=== PATIENT | female | born 1965 | race Caucasian/White ===

== ENCOUNTER → 2020-06-17 | Outpatient (CLI) | payer BC ==
[~2020-06-17] MED LIST: CETIRIZINE HCL10 MG PO; CITALOPRAM HBR10 MG PO; FLUTICASON0.05 MG/Ac NS; HCTZ 25MG25 MG PO; POTASSIUM CHLO20 ME4 PO; SEPTRA DS 8001 TAB PO; ZOFRAN ODT4 MG PO
== END ==
LOC: LAB 13:53
DX: R30.9 Painful micturition, unspecified (principal)

== ENCOUNTER → 2020-07-08 | Outpatient (CLI) | payer BC | LOC: AMSURD 14:07 | DX: R07.9 Chest pain, unspecified (principal) ==

== ENCOUNTER 2020-08-31 13:12 | Emergency (ER) | payer BC ==
[2020-08-31] MEDS ORDERED: HCTZ 25MG25 MG PO (13:54)
[2020-08-31] MEDS ORDERED: FLUTICASON0.05 MG/Ac NS (13:54)
[2020-08-31] MEDS ORDERED: CETIRIZINE HCL10 MG PO (13:54)
[2020-08-31] MEDS ORDERED: CITALOPRAM HBR10 MG PO (13:55)
[2020-08-31 14:12] LABS: BASO # 0.05 (0.02-0.10); EOS # 0.04 (0.04-0.40); EOS % 0.9 % (1.0-5.0); HEMATOCRIT 40.4 % (37.0-47.0); HEMOGLOBIN 13.9 g/dL (12.5-16.0); LYMPH# 1.21 (1.50-4.00); MEAN CELL VOLUME 86 fl (78-100); MEAN CORPUSCULAR HEMOGLOBIN 30 pg (27-31); MEAN CORPUSCULAR HGB CONC 34 g/dL (33-37); MEAN PLATELET VOLUME 10.1 fl (7.4-10.4); NEU # 2.97 (1.40-6.50); PLATELET COUNT 173 K/mm3 (130-400); RED BLOOD COUNT 4.68 M/mm3 (4.10-5.30); RED CELL DISTRIBUTION WIDTH 12.5 % (11.5-14.5); WHITE BLOOD COUNT 4.7 K/mm3 (4.8-10.8)
[2020-08-31 14:22] LABS: POTASSIUM 3.5 mmol/L (3.5-5.1)
[2020-08-31 14:23] LABS: CALCIUM 9.4 mg/dL (8.3-10.5)
[2020-08-31 14:35] LABS: PROTHROMBIN TIME 9.9 SECONDS (9.0-12.0)
[2020-08-31 14:36] LABS: D-DIMER 0.43 mg/L FEU (0.15-0.50)
[2020-08-31 15:35] VITALS: BP 123/80
== END 2020-08-31 15:35 | disposition home or self-care (01) ==
LOC: ED 13:12
PROVIDERS: Physician Assistant
DX: S20.01XA Contusion of right breast, initial encounter (principal); F41.9 Anxiety disorder, unspecified; F32.9 Major depressive disorder, single episode, unspecified; Z79.899 Other long term (current) drug therapy; W19.XXXA Unspecified fall, initial encounter; W22.8XXA Striking against or struck by other objects, initial encounter

== ENCOUNTER 2020-10-16 22:11 | Emergency (ER) | payer BC ==
[~2020-10-16] VITALS: Ht 165.1 cm; Wt 74.9 kg
[~2020-10-16 22:11] MED LIST changes: -POTASSIUM CHLO20 ME4 PO; -SEPTRA DS 8001 TAB PO; -ZOFRAN ODT4 MG PO
[2020-10-16 23:18] LABS: BASO # 0.03 (0.02-0.10); HEMATOCRIT 36.7 % (37.0-47.0); HEMOGLOBIN 13.2 g/dL (12.5-16.0); LYMPH# 0.61 (1.50-4.00); MEAN CELL VOLUME 85 fl (78-100); MEAN CORPUSCULAR HEMOGLOBIN 30 pg (27-31); MEAN CORPUSCULAR HGB CONC 36 g/dL (33-37); MEAN PLATELET VOLUME 9.8 fl (7.4-10.4); MONO # 0.59 (0.20-0.80); NEU # 4.31 (1.40-6.50); PLATELET COUNT 115 K/mm3 (130-400); RED BLOOD COUNT 4.34 M/mm3 (4.10-5.30); RED CELL DISTRIBUTION WIDTH 12.9 % (11.5-14.5); WHITE BLOOD COUNT 5.6 K/mm3 (4.8-10.8)
[2020-10-16 23:23] LABS: ALBUMIN 3.6 g/dL (3.5-5.0)
[2020-10-16 23:24] LABS: POTASSIUM 3.3 mmol/L (3.5-5.1)
[2020-10-16 23:25] LABS: CALCIUM 9.1 mg/dL (8.3-10.5)
[2020-10-16 23:26] LABS: TOTAL PROTEIN 6.6 g/dL (6.4-8.3)
[2020-10-16 23:28] LABS: TOTAL BILIRUBIN 0.5 mg/dL (0.2-1.2)
[2020-10-16 23:41] LABS: URINE APPEARANCE HAZY; URINE BILIRUBIN NEGATIVE (NEGATIVE); URINE BLOOD 250 ery/uL (NEGATIVE); URINE COLOR YELLOW; URINE GLUCOSE NEGATIVE (NEGATIVE); URINE KETONE 1+ (NEGATIVE); URINE LEUKOCYTE ESTERASE 1+ (NEGATIVE); URINE NITRATE NEGATIVE (NEGATIVE); URINE PROTEIN(semi-quant) 1+ mg/dL (NEGATIVE); URINE UROBILINOGEN NORMAL (NORMAL)
[2020-10-16 23:42] LABS: URINE MUCUS PRESENT (NOT PRESENT)
[2020-10-17] MEDS ORDERED: ZOFRAN ODT4 MG PO (01:51)
[2020-10-17] MEDS ORDERED: POTASSIUM CHLO20 ME4 PO (01:51)
[2020-10-17] MEDS ORDERED: SEPTRA DS 8001 TAB PO (01:51)
[2020-10-17 02:02] VITALS: BP 115/76
== END 2020-10-17 02:02 | disposition home or self-care (01) ==
LOC: ED 22:11
PROVIDERS: Family Medicine
DX: A08.4 Viral intestinal infection, unspecified (principal); E87.6 Hypokalemia; R82.81 Pyuria; E86.9 Volume depletion, unspecified; F41.9 Anxiety disorder, unspecified; F32.9 Major depressive disorder, single episode, unspecified; Z90.710 Acquired absence of both cervix and uterus; Z90.49 Acquired absence of other specified parts of digestive tract; Z79.899 Other long term (current) drug therapy; Z20.822 Contact with and (suspected) exposure to COVID-19
CPT/HCPCS: J1885; J3490; J7030

== ENCOUNTER → 2021-08-22 | Outpatient (CLI) | payer BC ==
[~2021-08-22] MED LIST changes: +POTASSIUM CHLO20 ME4 PO; +SEPTRA DS 8001 TAB PO; +ZOFRAN ODT4 MG PO
[2021-08-22 14:19] LABS: BASO # 0.05 K/mm3 (0.02-0.10); EOS # 0.09 K/mm3 (0.04-0.40); EOS % 1.7 % (1.0-5.0); HEMOGLOBIN 13.6 g/dL (12.5-16.0); LYMPH# 1.19 K/mm3 (1.50-4.00); MEAN CELL VOLUME 89 fl (78-100); MEAN CORPUSCULAR HEMOGLOBIN 29 pg (27-31); MEAN CORPUSCULAR HGB CONC 33 g/dL (33-37); MEAN PLATELET VOLUME 9.8 fl (7.4-10.4); MONO # 0.35 K/mm3 (0.20-0.80); NEU # 3.63 K/mm3 (1.40-6.50); PLATELET COUNT 179 K/mm3 (130-400); RED BLOOD COUNT 4.63 M/mm3 (4.10-5.30); RED CELL DISTRIBUTION WIDTH 13.5 % (11.5-14.5); WHITE BLOOD COUNT 5.3 K/mm3 (4.8-10.8)
[2021-08-22 14:29] LABS: ALBUMIN 4.4 g/dL (3.5-5.0); POTASSIUM 4.2 mmol/L (3.5-5.1)
[2021-08-22 14:32] LABS: TOTAL PROTEIN 7.3 g/dL (6.4-8.3)
[2021-08-22 14:34] LABS: TOTAL BILIRUBIN 0.4 mg/dL (0.2-1.2)
[2021-08-23 10:27] LABS: ANA SCREEN with REFLEX Negative (Negative)
== END ==
LOC: LAB 13:57
PROVIDERS: Physician Assistant
DX: Z00.00 Encounter for general adult medical examination without abnormal findings (principal); Z13.29 Encounter for screening for other suspected endocrine disorder; Z13.1 Encounter for screening for diabetes mellitus; F41.1 Generalized anxiety disorder; G43.909 Migraine, unspecified, not intractable, without status migrainosus; J45.20 Mild intermittent asthma, uncomplicated; M19.90 Unspecified osteoarthritis, unspecified site; M25.561 Pain in right knee; K90.9 Intestinal malabsorption, unspecified

== ENCOUNTER 2021-11-02 10:27 | Emergency (ER) | payer BC ==
[2021-11-02 11:34] LABS: HEMATOCRIT 44.2 % (37.0-47.0); HEMOGLOBIN 15.1 g/dL (12.5-16.0); MEAN CELL VOLUME 87 fl (78-100); MEAN CORPUSCULAR HEMOGLOBIN 30 pg (27-31); MEAN CORPUSCULAR HGB CONC 34 g/dL (33-37); MEAN PLATELET VOLUME 10.7 fl (7.4-10.4); PLATELET COUNT 110 K/mm3 (130-400); RED BLOOD COUNT 5.09 M/mm3 (4.10-5.30); RED CELL DISTRIBUTION WIDTH 12.7 % (11.5-14.5); WHITE BLOOD COUNT 2.2 K/mm3 (4.8-10.8)
[2021-11-02 11:48] LABS: ALBUMIN 4.3 g/dL (3.5-5.0); AST-SGOT 28 U/L (5-34); CALCIUM 9.4 mg/dL (8.3-10.5); CARBON DIOXIDE 23 mmol/L (22-29); GLUCOSE 96 mg/dL (65-105); POTASSIUM 4.3 mmol/L (3.5-5.1); SODIUM 139 mmol/L (136-145); TOTAL BILIRUBIN 0.5 mg/dL (0.2-1.2); TOTAL PROTEIN 7.5 g/dL (6.4-8.3)
[2021-11-02 11:49] LABS: ALT/SGPT 22 U/L (0-55)
[2021-11-02 11:59] LABS: LYMPHOCYTE 36 % (20-51); MONOCYTE 13 % (3-10); NEUTROPHILS 51 % (42-75)
[2021-11-02 12:06] LABS: TROPONIN-I < 0.030 ng/mL (<0.030)
[2021-11-02] MEDS ORDERED: ZOFRAN ODT4 MG PO (12:24)
[2021-11-02 12:59] VITALS: BP 133/79
== END 2021-11-02 12:50 | disposition home or self-care (01) ==
LOC: ED 10:27
PROVIDERS: Physician Assistant
DX: U07.1 COVID-19 (principal); Z28.310 Unvaccinated for COVID-19
CPT/HCPCS: J1885; J2405; J7030

== ENCOUNTER → 2023-03-26 | Outpatient (CLI) | payer BC | LOC: RAD 15:05 | DX: M17.11 Unilateral primary osteoarthritis, right knee (principal); M25.461 Effusion, right knee; M25.562 Pain in left knee ==

== ENCOUNTER → 2023-04-02 | Outpatient (CLI) | payer BC | LOC: RAD 09:04 | DX: M94.261 Chondromalacia, right knee (principal); M25.761 Osteophyte, right knee; M23.303 Other meniscus derangements, unspecified medial meniscus, right knee ==

== ENCOUNTER 2023-07-10 08:00 | Outpatient (RCR) | payer BC | END 2023-08-02 23:59 | LOC: PT 08:00 | DX: M25.561 Pain in right knee (principal) ==

== ENCOUNTER 2023-08-03 08:00 | Outpatient (RCR) | payer BC | END 2023-09-01 | LOC: PT | DX: M25.561 Pain in right knee (principal); Z98.890 Other specified postprocedural states ==